=== PATIENT | male | born 1965 | race Caucasian/White ===

== ENCOUNTER 2022-10-15 16:51 | Outpatient (CLI) | payer OTHER, SELFPAY | END 2022-10-15 16:52 | disposition home or self-care (01) | LOC: NFLDREF 16:52 | PROVIDERS: PCP Internal Medicine; Visit Provider Internal Medicine | DX: Z00.00 Encounter for general adult medical examination without abnormal findings (principal); Z12.5 Encounter for screening for malignant neoplasm of prostate; Z13.6 Encounter for screening for cardiovascular disorders | CPT/HCPCS: 80053; 80061; 84153 ==

== ENCOUNTER 2024-01-01 07:35 | Outpatient (CLI) | payer OTHER, SELFPAY | END 2024-01-01 07:36 | disposition home or self-care (01) | LOC: NFLDREF 01-02 08:38 | PROVIDERS: PCP Internal Medicine; Referring Provider Internal Medicine; Visit Provider Internal Medicine | DX: E78.5 Hyperlipidemia, unspecified (principal); Z12.5 Encounter for screening for malignant neoplasm of prostate; Z13.9 Encounter for screening, unspecified | CPT/HCPCS: 80053; 80061; G0103 ==

== ENCOUNTER 2025-01-27 09:00 | Outpatient (CLI) | payer OTHER, SELFPAY | END 2025-01-27 09:01 | disposition home or self-care (01) | LOC: NFLDREF 01-28 10:05 | PROVIDERS: PCP Internal Medicine; Referring Provider Internal Medicine; Visit Provider Internal Medicine | DX: Z00.00 Encounter for general adult medical examination without abnormal findings (principal) | CPT/HCPCS: 80053; 80061; G0103 ==